=== PATIENT | male | born 1950 | race Caucasian/White ===

== ENCOUNTER 2017-04-14 05:22 | Inpatient (IN) | payer OTHER, MEDICARE ==
[2017-03-15 13:35] VITALS: BMI 31.0
--- NOTE | 2017-03-15 14:12 | PAT Medication Instructions ---
Service Date March 15, 2017. Current Home Medication List Aspirin (Aspirin Ec), 81 MG PO QAM Carboxymethylcellulose-Glyceri (Optive), 1 DROPS OP QAM PRN for DRY EYES Cholecalciferol (Vitamin D3), 1 TAB PO QAM Ferrous Sulfate (Kp Ferrous Sulfate), 1 TAB PO QAM Fish Oil ([place]-3), 1 CAP PO QAM Fish Oil ([place]-3), 1 CAP PO QAM Ketorolac Tromethamine (Ophth) (Acular Oph), 1 DROPS OPR QID Latanoprost (Xalatan 0.005% Oph Estrella), 1 DROPS OPB HS Loratadine (Claritin), 10 MG PO QAM PRN for SEASONAL ALLERGIES Multivitamin (Multivitamin), 1 TAB PO QAM Naproxen (Aleve), 2 TAB PO QAM Ofloxacin (Oph) (Ocuflox Oph Soln), 1 DROPS OPR QID Prednisolone Acetate (Ophth) (Pred Forte 1% Oph), 1 DROPS OPR QID Red Yeast Rice Extract (Red Yeast Rice), 1,200 MG PO QAM Sertraline (Zoloft), 25 MG PO TWICE MONTHLY PRN for Anxiety Medication Instructions For Your Scheduled Surgery Ketorolac Tromethamine (Ophth) (Acular Oph), 1 DROPS OPR QID (take as directed) Latanoprost (Xalatan 0.005% Oph Estrella), 1 DROPS OPB HS (take as directed) Ofloxacin (Oph) (Ocuflox Oph Soln), 1 DROPS OPR QID (take as directed) Prednisolone Acetate (Ophth) (Pred Forte 1% Oph), 1 DROPS OPR QID (take as directed) Naproxen (Aleve), 2 TAB PO QAM (patient will check with surgeon for instructions ) - Hold the following medications 2 weeks prior to surgery: Red Yeast Rice Extract (Red Yeast Rice), 1,200 MG PO QAM. Fish Oil ([place]-3), 1 CAP PO QAM - Hold the following medications the morning of surgery: Loratadine (Claritin), 10 MG PO QAM PRN for SEASONAL ALLERGIES Multivitamin (Multivitamin), 1 TAB PO QAM Cholecalciferol (Vitamin D3), 1 TAB PO QAM Ferrous Sulfate (Kp Ferrous Sulfate), 1 TAB PO QAM - Take the following medications the morning of surgery with a sip of water: Sertraline (Zoloft), 25 MG PO TWICE MONTHLY PRN for Anxiety (if needed) Aspirin (Aspirin Ec), 81 MG PO QAM Carboxymethylcellulose-Glyceri (Optive), 1 DROPS OP QAM PRN for DRY EYES (if needed) If you have any questions please call us at [phone] or [phone] ( Jacey) or [phone]
[2017-03-15 14:43] LABS: BASO % 0.7 %; BASO ABS # 0.05 K/uL (0-0.2); COMPLETE YES; EOS % 2.9 %; HEMATOCRIT 46.4 % (42-52); IG% 0.1 %; LYMPH % 33.1 %; LYMPH ABS # 2.26 K/uL (1.2-3.4); MEAN CELL VOLUME 89.9 fL (80-100); MEAN CORPUSCULAR HEMOGLOBIN 29.5 pg (25-34); MEAN CORPUSCULAR HGB CONC 32.8 g/dl (32-36); MEAN PLATELET VOLUME 9.5 fL (7.4-10.4); MONO % 7.3 %; NEUT % 55.9 %; PLATELET COUNT 202 K/uL (130-400); RED BLOOD COUNT 5.16 M/uL (4.7-6.1); WHITE BLOOD COUNT 6.83 K/uL (4.8-10.8)
[2017-03-15 14:51] LABS: ESTIMATED AVERAGE GLUCOSE 114 mg/dl; HA1C FLAG Normal (Normal)
[2017-03-15 14:54] LABS: PROTHROMBIN TIME (PATIENT) 10.3 SECONDS (9.0-12.0)
[2017-03-15 14:57] LABS: URINE APPEARANCE CLEAR (CLEAR); URINE BILIRUBIN NEG (NEG); URINE COLOR YELLOW; URINE NITRITE NEG (NEG); URINE PH 5.5 (4.5-7.5); URINE SPECIFIC GRAVITY 1.022 (1.000-1.030); UROBILINOGEN NEG (NEG)
--- NOTE | 2017-03-15 14:57 | DIAGNOSTIC IMAGING REPORT ---
CHEST 2 VIEWS ROUTINE CLINICAL HISTORY: Preoperative evaluation. COMPARISON STUDY: No previous studies for comparison. FINDINGS: Low volumes are normal. There is no consolidation to suggest pneumonia and there is no evidence of pulmonary edema. Cardiac size is at the upper limits of normal. There is no pneumothorax or pleural effusion. IMPRESSION: 1. No acute cardiopulmonary findings. 2. Borderline cardiomegaly. Electronically signed by: Sudhir Benson M.D. 03/15/2017 2:55 PM Dictated Date/Time: 03/15/2017 2:54 PM
[2017-03-15 15:10] LABS: MANUAL MICROSCOPIC REQUIRED? NO; REVIEW REQ? NO
[2017-03-15 16:34] LABS: BUN/CREATININE RATIO 19.9 (10-20); CALCIUM 9.1 mg/dl (8.5-10.1); CREATININE 0.94 mg/dl (0.60-1.40); POTASSIUM 4.1 mmol/L (3.5-5.1)
--- NOTE | 2017-04-13 09:51 | HISTORY & PHYSICAL EXAMINATION ---
DATE OF ADMISSION: 04/14/2017 CHIEF COMPLAINT: Left hip pain. HISTORY OF PRESENT ILLNESS: The patient is a 66-year-old gentleman with known osteoarthritis about his bilateral hips, left worse than right. He takes naproxen daily for pain. He complains of increasing pain and disability with activities of daily living. He has pain with prolonged weightbearing and standing activities. He has difficulty with any kneeling, bending, or squatting activities. He now desires to proceed with left total hip arthroplasty. PAST MEDICAL HISTORY: Hypertension, hypercholesterolemia, prostate cancer, and obesity. PAST SURGICAL HISTORY: Prostatectomy, left knee arthroscopy, bilateral cataract surgery. MEDICATIONS: Sertraline hydrochloride 25 mg half tablet in the a.m. and half tablet in the p.m. p.r.n., latanoprost eyedrops 0.005% 2 eyedrops at bedtime, loratadine 10 mg p.r.n., naproxen 440 mg daily, aspirin 81 mg daily, iron 65 mg daily, vitamin D3 5000 units daily, vitamin B12 1000 mcg daily, omega-3 fish oil 1000 mg twice daily, red yeast rice 1200 mg daily, multivitamin. ALLERGIES: No known drug allergies. SOCIAL HISTORY AND REVIEW OF SYSTEMS: Noncontributory. PHYSICAL EXAMINATION: GENERAL: Well-nourished, well-developed elderly male who appears his stated age. HEENT: Normocephalic, atraumatic, extraocular movements intact, oropharynx pink and moist. NECK: Supple without adenopathy. LUNGS: Clear to auscultation bilaterally. HEART: Regular rate and rhythm. ABDOMEN: Soft, nontender, nondistended. EXTREMITIES: Upper extremities within normal limits. The left hip demonstrates limited range of motion. There is decreased internal and external rotation with pain at end range. X-RAYS: X-rays were reviewed. He has severe osteoarthritis about the left hip with complete loss of the joint space. There is osteophyte formation about the femoral head. There is deformation of the femoral head. There is cyst formation in the femoral head. ASSESSMENT: Left hip degenerative joint disease. PLAN: Risks versus benefits were discussed. Consent was obtained. The patient's primary care physician is Dr. Josue from [place]. We will proceed with left total hip arthroplasty upon preoperative workup and medical clearance.
[~2017-04-14] VITALS: Ht 177.8 cm; Wt 100.0 kg
[2017-04-14] VITALS (9 sets, daily range): BP systolic 109–159; BP diastolic 69–89; PULSE 62–82; TEMP 36.4–36.7; O2SAT 95–100; Ht 177.8 cm; Wt 100.0 kg
[~2017-04-14 05:22] MED LIST: ASPI81TA28 PO; CARB0.01 OP; CHOL1TAB46 PO; CLR10 PO; FERR1TAB13 PO; KETO0.5S33 OPR; LATA0.009 OPB; MULT-506 PO; NAPR1TAB9 PO; OFLO0.3S OPR; OMEG10007 PO; PRED1SUS3 OPR; RED1CAP5 PO; SERT25TA PO
[2017-04-14] MEDS ORDERED: CEFAZOLIN 3000 MG/65 ML D5W IV SCH (06:00)
[2017-04-14] MEDS ORDERED: GABAPENTIN 300 MG CAP PO SCH (06:00)
[2017-04-14] MEDS ORDERED: LACTATED RINGER'S 1000ML IV SCH (06:00)
[2017-04-14] MEDS ORDERED: FAMOTIDINE 20 MG TAB PO SCH (06:00)
[2017-04-14] MEDS ORDERED: ACETAMINOPHEN 500 MG TAB PO SCH (06:00)
[2017-04-14] MEDS ORDERED: CeleBREX 200 MG CAP PO SCH (06:00)
[2017-04-14] MEDS ORDERED: DEXAMETHASONE 4 MG TAB PO SCH (06:00)
[2017-04-14] MEDS ORDERED: LACTATED RINGER'S 1000ML 500 ML IV ONE (06:00)
[2017-04-14] MEDS ORDERED: METOCLOPRAMIDE HCL 10 MG TAB PO SCH (06:00)
[2017-04-14] MEDS ORDERED: ROPIVACAINE 5MG/ML 30 ML 150 MG, BUPIVACAINE/EPINEPHR 0.5% MPF 30 ML, KETOROLAC TROMETH... INFIL SCH ×7 (06:00)
[2017-04-14] MEDS ORDERED: LACTATED RINGER'S 1000ML 1,000 ML IV SCH (06:00)
[2017-04-14] MEDS: TRANEXAMIC ACID INJ 1,000 MG in SODIUM CHLORIDE 0.9% 100ML 100 ML IV SCH ×2 (06:17→06:30)
[2017-04-14] MEDS ORDERED: BUPIVACAINE 0.5 % 5 MG/1 ML PF 10ML VIAL ONE (06:29)
[2017-04-14] MEDS ORDERED: ORTHO JOINT ANESTHETIC ONE (06:39)
[2017-04-14] MEDS ORDERED: POVIDONE-IODINE OP SOLN 30 ML BTL ONE ×2 (06:39→06:55)
[2017-04-14] MEDS ORDERED: BACITRACIN 50000 UNIT VIAL ONE (06:40)
[2017-04-14] MEDS ORDERED: FENTANYL CITRATE INJ 50 MCG/1 ML 2 ML VIAL ONE (06:44)
[2017-04-14] MEDS ORDERED: MIDAZOLAM HCL 1 MG/ML 2ML VIAL ONE (06:44)
--- NOTE | 2017-04-14 06:59 | History & Physical Bridge Note ---
H&P Re-Evaluation Bridge Note: I have examined the patient, reviewed the History & Physical and in the interval since the performance of the History & Physical I have noted the following changes of clinical significance: No changes noted
[2017-04-14] MEDS ORDERED: LIDOCAINE HCL 2% 2 ML VIAL (20MG/ML) ONE (07:41)
[2017-04-14] MEDS ORDERED: PROPOFOL IV EMULSION 10 MG/ML 20 ML VIAL IV ONE (07:41)
--- NOTE | 2017-04-14 07:53 | [facility] Post Operative Brief Note ---
Immediate Operative Summary Operative Date Apr 14, 2017. Pre-Operative Diagnosis Degenerative joint disease left hip Post-Operative Diagnosis Same Procedure(s) Performed Left Total Hip Arthroplasty Surgeon Dr Partida Assistant Account Executive Surgeon(s) Monroe Martin PA-C Estimated Blood Loss 100ML Findings severe OA Specimens A. Left femoral head Disposition Recovery Room / PACU
--- NOTE | 2017-04-14 08:00 | OPERATIVE REPORT ---
DATE OF OPERATION: 04/14/2017 PREOPERATIVE DIAGNOSIS: Osteoarthritis left hip. POSTOPERATIVE DIAGNOSIS: Osteoarthritis left hip. PROCEDURE: Left connective total hip arthroplasty. SURGEON: Dr. Partida. GOLD LETTERER: Monroe Martin PA-C. ANESTHESIA: Spinal. COMPLICATIONS: None. OPERATION AND FINDINGS: PROCEDURE: Following induction of adequate spinal anesthesia, the patient was placed in right lateral decubitus position and left Adamaris-Langenbeck incision was made. Subcutaneous tissue was sharply dissected. Electrocautery used for hemostasis. The fascia was incised throughout the length of the wound and a obrien scissor placed beneath the short external rotators. The pyriformis was tagged with #1 Vicryl. The short external rotators were divided from the posterior aspect of the femur using electrocautery. These were swept posteriorly. A T-capsulotomy incision was made and the hip was dislocated using a combination of flexion, adduction, and internal rotation. Exposure of the femoral neck with old-style Hohmann and a blunt Hohmann was carried out and a femoral rasp was utilized as a guide for making the appropriate level femoral neck cut. This bone fragment was removed and reserved on the back table. Next, attention was turned to the acetabulum where bone hook was used to retract the femur while the offset retractors were placed anterior and posteriorly. A double-angled Hohmann was placed in superior and anterior position exposing the acetabulum nicely. Acetabular labrum as well as posterior capsule elements were removed using a long knife and a long pickup. Fovea centralis was cleared of all soft tissue. Sequential reamings were carried up to a size 54 and decision was made to proceed with impaction of a 54 trabecular metal cup. This was impacted and held using a single 35 mm bone screw. The acetabular liner was placed with 15 of elevated posterior wall in the superior and posterior position. Next, attention was turned to the femoral portion of the case where a Bovie and pickup was used to further clear short external rotators from their insertion on the femur. Box osteotome was used to gain access to the femoral canal and the T-handled rasp and a rattail rasp were used to further open and lateral the canal. Sequentially raspings were carried up to a size 4 which gave good fit and fill of the proximal femur. A trial reduction was carried out and size 4 offset femoral neck component was chosen as the size to be used. A -2.5 x 36 mm ceramic femoral head was impacted into position, +0 head was utilized. The trial reduction was stable in all degrees of rotation with no [id number] impingement. The hip was dislocated. The trial components were removed and the final femoral stem, neck, and femoral head combination were assembled on the back table and impacted into position. Hip was relocated. Range of motion checked once again successful and the wound was irrigated. The pyriformis repaired to the greater trochanter using #1 Vicryl [id number] suture. A Hemovac drain was placed and the fascia was closed using #1 Vicryl, subcutaneous tissue was closed using 0 Dexon, and skin was closed with sharron. Sterile dressing of Adaptic, 4 x 4's, ABDs, and foam tape was applied. The patient tolerated the procedure well. Due to the complex nature of the procedure, the entire surgery was performed with the operational assistance of Monroe Martin PA-C. The assistant professor sculpture, under direct supervision, was involved in the actual performance of all aspects of the surgical procedure including hemostasis, tissue retraction and incision, instrument management, patient positioning, and wound closure. I attest to the content of the Intraoperative Record and any orders documented therein. Any exception s are noted below.
[2017-04-14] MEDS ORDERED: KETOROLAC TROMETHAMINE 30 MG/ML VIAL IV. PRN (08:15)
[2017-04-14] MEDS ORDERED: EpHEDrine SULFATE INJ 50 MG/ML AMP IV PRN (08:15)
[2017-04-14] MEDS ORDERED: ATROPINE SULFATE 0.1 MG/ML 5ML SYR IV PRN (08:15)
[2017-04-14] MEDS ORDERED: HYDROmorphone INJ 2 MG/ML SYR/VIAL IV PRN (08:15)
[2017-04-14] MEDS ORDERED: PHENYLEPHRINE 100MCG/ML 5ML SYR IV PRN (08:15)
[2017-04-14] MEDS ORDERED: ONDANSETRON INJ 2 MG/ML 2 ML VIAL IV PRN ×2 (08:15→08:30)
[2017-04-14] MEDS ORDERED: TAMSULOSIN HCL 0.4 MG CAP PO PRN (08:30)
[2017-04-14] MEDS ORDERED: OXYCODONE HCL IR 5 MG TAB (IMMEDIATE RELEASE) PO PRN (08:30)
[2017-04-14] MEDS ORDERED: SERTRALINE HCL 50 MG TAB PO PRN (08:30)
[2017-04-14] MEDS ORDERED: ALUMINUM/MAGNESIUM/SIMETH (MAALOX MAX) 30 ML UDC PO PRN (08:30)
[2017-04-14] MEDS ORDERED: MoRPHine SULFATE 2 MG/ML CARP IV PRN (08:30)
[2017-04-14] MEDS ORDERED: MAGNESIUM HYDROXIDE SUSP 30 ML UDC PO PRN (08:30)
[2017-04-14] MEDS ORDERED: ZOLPIDEM TARTRATE 5 MG TAB PO PRN (08:30)
[2017-04-14] MEDS ORDERED: METOCLOPRAMIDE HCL INJ 5 MG/ML 2 ML VIAL IV PRN (08:30)
[2017-04-14] MEDS: KETOROLAC 0.5% OP SOLN 3 ML BTL OPR SCH ×4 (09:00→21:00)
[2017-04-14] MEDS: MULTIVITAMIN TAB PO SCH (09:00)
[2017-04-14] MEDS: PANTOprazole SOD 40 MG TAB PO SCH (09:00)
[2017-04-14] MEDS: PrednisoLONE ACET 1% OP SUSP 5 ML BTL OPR SCH ×4 (09:00→21:00)
[2017-04-14] MEDS: DOCUSATE SODIUM 100 MG CAP PO SCH ×2 (09:00→21:02)
--- NOTE | 2017-04-14 09:19 | DIAGNOSTIC IMAGING REPORT ---
SINGLE VIEW PELVIS; SINGLE VIEW LEFT HIP CLINICAL HISTORY: Postoperative examination. FINDINGS: An AP portable view of the hips and pelvis with a crosstable lateral portable view of the left hip are obtained. A bipolar left hip arthroplasty is in near-anatomic alignment. A single cortical lag screw transfixes the acetabular cup. No acute fracture is identified. There are expected postoperative changes overlying the left hip including skin clips, subcutaneous gas, a surgical drain, and soft tissue swelling. Moderate arthritic change is seen in the right hip. Numerous surgical clips are seen in the pelvis. IMPRESSION: Expected postoperative findings status post left hip arthroplasty. No acute fracture is seen. Electronically signed by: Luke Guerra M.D. 04/14/2017 9:18 AM Dictated Date/Time: 04/14/2017 9:17 AM
--- NOTE | 2017-04-14 09:44 | Anesthesiology Progress Note ---
Anesthesia Post Op Note Date & Time Apr 14, 2017 at 09:44 Vital Signs Pain Intensity: 0 Vital Signs Past 12 Hours Date Time Temp Pulse Resp B/P (MAP) Pulse Ox O2 Delivery O2 Flow Rate FiO2 04/14/17 09:37 97/64 04/14/17 09:34 62 15 04/14/17 09:34 61 15 99 04/14/17 09:32 105/60 04/14/17 09:29 57 17 04/14/17 09:29 57 17 99 04/14/17 09:27 98/68 04/14/17 09:24 60 16 99 04/14/17 09:24 60 16 04/14/17 09:22 97/61 04/14/17 09:19 62 14 100 04/14/17 09:19 61 14 04/14/17 09:17 111/65 04/14/17 09:17 36.7 60 16 111/65 (77) 100 Nasal Cannula 2 04/14/17 09:14 60 12 99 04/14/17 09:14 60 12 04/14/17 09:13 61 18 04/14/17 09:13 62 18 99 04/14/17 09:12 101/67 04/14/17 09:08 59 14 100 04/14/17 09:08 59 14 04/14/17 09:07 112/59 04/14/17 09:03 58 14 04/14/17 09:03 58 14 100 04/14/17 09:02 106/66 04/14/17 08:58 57 15 100 04/14/17 08:58 56 15 04/14/17 08:57 107/66 04/14/17 08:53 56 12 100 04/14/17 08:53 56 12 04/14/17 08:52 99/63 04/14/17 08:48 59 12 04/14/17 08:48 58 12 100 04/14/17 08:47 96/64 04/14/17 08:43 64 15 04/14/17 08:43 64 15 100 04/14/17 08:42 59 12 04/14/17 08:42 61 12 100/64 100 04/14/17 08:42 59 12 04/14/17 08:42 61 12 100/64 100 04/14/17 08:37 62 16 04/14/17 08:37 61 16 102/60 100 04/14/17 08:37 62 16 04/14/17 08:37 61 16 102/60 100 04/14/17 08:32 61 14 04/14/17 08:32 61 14 04/14/17 08:32 62 14 106/65 100 04/14/17 08:32 62 14 106/65 100 04/14/17 08:27 61 12 04/14/17 08:27 60 12 100/69 100 04/14/17 08:27 60 12 100/69 100 04/14/17 08:27 61 12 04/14/17 08:24 99/63 04/14/17 08:24 99/63 04/14/17 08:22 67 18 04/14/17 08:22 67 18 04/14/17 08:22 66 18 100 04/14/17 08:22 36.4 64 20 99/63 (69) 100 Mask 10 04/14/17 08:22 66 18 100 04/14/17 05:54 36.7 78 20 159/89 98 Room Air Notes Mental Status: alert / awake / arousable, participated in evaluation Pt Amnestic to Procedure: Yes Nausea / Vomiting: adequately controlled Pain: adequately controlled Airway Patency, RR, SpO2: stable & adequate BP & HR: stable & adequate Hydration State: stable & adequate Anesthetic Complications: no major complications apparent
[2017-04-14] MEDS ORDERED: MoRPHine SULFATE 10 MG/ML CARP/VIAL IV PRN (09:45)
[2017-04-14] MEDS ORDERED: MoRPHine SULFATE 4 MG/ML 1 ML CARP\\VIAL IV PRN (09:45)
[2017-04-14] MEDS: D5W AND 1/2NSS + 20MEQ KCL 1,000 ML IV SCH ×2 (10:29→20:59)
[2017-04-14] MEDS: ASPIRIN 81 MG ECTAB PO SCH ×2 (10:29→21:01)
[2017-04-14] MEDS: KETOROLAC TROMETHAMINE 15 MG/ML VIAL IV. SCH ×3 (11:15→23:33)
[2017-04-14] MEDS: FERROUS GLUCONATE 324 MG TAB PO SCH ×2 (12:47→17:37)
[2017-04-14] MEDS: CEFAZOLIN IV 2,000 MG in DEXTROSE 5% 50ML 50 ML IV SCH ×2 (13:23→21:59)
[2017-04-14] MEDS: ACETAMINOPHEN 500 MG TAB PO SCH ×2 (13:23→21:59)
[2017-04-14] MEDS: LATANOPROST 0.005% OP SOLN 2.5 ML BTL OPB SCH (21:00)
[2017-04-14] MEDS: PREGABALIN 75 MG CAP PO SCH (21:01)
[2017-04-15 03:45] VITALS: BP 119/73; PULSE 69; TEMP 36.4; O2SAT 97
[2017-04-15 05:38] LABS: BASO % 0.1 %; BASO ABS # 0.01 K/uL (0-0.2); COMPLETE YES; HEMATOCRIT 38.5 % (42-52); IG% 0.2 %; LYMPH % 11.1 %; LYMPH ABS # 1.29 K/uL (1.2-3.4); MEAN CELL VOLUME 87.7 fL (80-100); MEAN CORPUSCULAR HEMOGLOBIN 28.2 pg (25-34); MEAN CORPUSCULAR HGB CONC 32.2 g/dl (32-36); MEAN PLATELET VOLUME 9.7 fL (7.4-10.4); NEUT % 77.6 %; PLATELET COUNT 179 K/uL (130-400); RED BLOOD COUNT 4.39 M/uL (4.7-6.1); WHITE BLOOD COUNT 11.59 K/uL (4.8-10.8)
[2017-04-15] MEDS: KETOROLAC TROMETHAMINE 15 MG/ML VIAL IV. SCH (06:07)
[2017-04-15] MEDS: ACETAMINOPHEN 500 MG TAB PO SCH ×3 (06:07→21:53)
[2017-04-15] MEDS: D5W AND 1/2NSS + 20MEQ KCL 1,000 ML IV SCH (06:08)
[2017-04-15 06:18] LABS: BUN/CREATININE RATIO 19.4 (10-20); CALCIUM 8.1 mg/dl (8.5-10.1); POTASSIUM 4.6 mmol/L (3.5-5.1)
[2017-04-15 07:05] VITALS: BP 134/80; PULSE 71; TEMP 36.4; O2SAT 97
--- NOTE | 2017-04-15 07:26 | Orthopedic Progress Note ---
Orthopedic Progress Note Date of Service Apr 15, 2017. Subjective Post OP Day: 1 Reports: feeling well Objective N/V intact, dressing C/D/I (Hemovac d/c'd), toes mobile Date Time Temp Pulse Resp B/P (MAP) Pulse Ox O2 Delivery O2 Flow Rate FiO2 04/15/17 03:45 36.4 69 16 119/73 (88) 97 Room Air 04/14/17 23:50 36.7 72 16 124/76 (92) 95 Room Air 04/14/17 23:30 Room Air 04/14/17 18:56 36.6 82 20 137/79 (98) 97 Room Air 04/14/17 16:06 36.4 70 16 131/77 (95) 97 Room Air 04/14/17 15:30 Room Air 04/14/17 13:02 73 16 123/74 (90) 100 Nasal Cannula 2.0 04/14/17 11:53 63 16 117/74 (88) 100 Nasal Cannula 2.0 04/14/17 10:49 65 16 112/71 (85) 100 Nasal Cannula 2.0 04/14/17 10:20 62 16 112/71 (85) 100 Nasal Cannula 2.0 04/14/17 09:50 Nasal Cannula 2.0 04/14/17 09:50 99 Nasal Cannula 2.0 04/14/17 09:50 36.4 64 16 109/69 (82) 99 Nasal Cannula 2.0 04/14/17 09:37 97/64 04/14/17 09:34 62 15 04/14/17 09:34 61 15 99 04/14/17 09:32 105/60 04/14/17 09:29 57 17 04/14/17 09:29 57 17 99 04/14/17 09:27 98/68 04/14/17 09:24 60 16 99 04/14/17 09:24 60 16 04/14/17 09:22 97/61 04/14/17 09:19 62 14 100 04/14/17 09:19 61 14 04/14/17 09:17 111/65 04/14/17 09:17 36.7 60 16 111/65 (77) 100 Nasal Cannula 2 04/14/17 09:14 60 12 99 04/14/17 09:14 60 12 04/14/17 09:13 61 18 04/14/17 09:13 62 18 99 04/14/17 09:12 101/67 04/14/17 09:08 59 14 100 04/14/17 09:08 59 14 04/14/17 09:07 112/59 04/14/17 09:03 58 14 04/14/17 09:03 58 14 100 04/14/17 09:02 106/66 04/14/17 08:58 57 15 100 04/14/17 08:58 56 15 04/14/17 08:57 107/66 04/14/17 08:53 56 12 100 04/14/17 08:53 56 12 04/14/17 08:52 99/63 04/14/17 08:48 59 12 04/14/17 08:48 58 12 100 04/14/17 08:47 96/64 04/14/17 08:43 64 15 04/14/17 08:43 64 15 100 04/14/17 08:42 59 12 04/14/17 08:42 61 12 100/64 100 04/14/17 08:42 59 12 04/14/17 08:42 61 12 100/64 100 04/14/17 08:37 62 16 04/14/17 08:37 61 16 102/60 100 04/14/17 08:37 62 16 04/14/17 08:37 61 16 102/60 100 04/14/17 08:32 61 14 04/14/17 08:32 61 14 04/14/17 08:32 62 14 106/65 100 04/14/17 08:32 62 14 106/65 100 04/14/17 08:27 61 12 04/14/17 08:27 60 12 100/69 100 04/14/17 08:27 60 12 100/69 100 04/14/17 08:27 61 12 04/14/17 08:24 99/63 04/14/17 08:24 99/63 04/14/17 08:22 67 18 04/14/17 08:22 67 18 04/14/17 08:22 66 18 100 04/14/17 08:22 36.4 64 20 99/63 (69) 100 Mask 10 04/14/17 08:22 66 18 100 Laboratory Results 24 Hours: Test 04/15/17 05:20 White Blood Count 11.59 K/uL Red Blood Count 4.39 M/uL Hemoglobin 12.4 g/dL Hematocrit 38.5 % Mean Corpuscular Volume 87.7 fL Mean Corpuscular Hemoglobin 28.2 pg Mean Corpuscular Hemoglobin Concent 32.2 g/dl Platelet Count 179 K/uL Mean Platelet Volume 9.7 fL Neutrophils (%) (Auto) 77.6 % Lymphocytes (%) (Auto) 11.1 % Monocytes (%) (Auto) 11.0 % Eosinophils (%) (Auto) 0.0 % Basophils (%) (Auto) 0.1 % Neutrophils # (Auto) 8.99 K/uL Lymphocytes # (Auto) 1.29 K/uL Monocytes # (Auto) 1.28 K/uL Eosinophils # (Auto) 0.00 K/uL Basophils # (Auto) 0.01 K/uL Assessment & Plan Assessment: 66 yo male stable POD #1 s/p left KARISSA Plan: 1. Med management 2. DVT prophylaxis- ASA, SCDs 3. PT/OT 4. D/C planning- home w/ HH
--- NOTE | 2017-04-15 07:28 | Discharge Instructions ---
Discharge Instructions Date of Service Apr 15, 2017. Admission Reason for Admission: Left Hip Osteoarthritis Discharge Discharge Diagnosis / Problem: Left hip arthritis Discharge Goals Goal(s): Decrease discomfort, Improve function Activity Recommendations Activity Limitations: as noted below Weightbearing Status: Left weightbearing (as tolerated) . Instructions / Follow-Up Instructions / Follow-Up ACTIVITY RECOMMENDATIONS: SELF CARE INSTRUCTIONS AFTER TOTAL HIP REPLACEMENT Until the incision and soft tissues around your hip have healed, there is a possibility that the hip prosthesis could dislocate. A. Observe the following precautions to prevent dislocation: 1. Don't bend your hip greater than 90 degrees. 2. Avoid crossing your legs or ankles while standing or lying. 3. Sit with your feet placed 6 inches apart. 4. When sitting, keep your knees below your hips. Sit on a firm surface, avoid deep, soft chairs and couches. Use an elevated toilet seat in the bathroom. 5. Don't bend over at the waist. Use a long handled shoehorn and a sock aid to help you put on your shoes and socks. A pole maker can help you picking crew supervisor objects that are too high or too low to reach. 6. Keep car riding to a minimum for at least one month after surgery. B. Your balance may be shaky for a while. Use crutches or a walker until directed by your doctor. C. Use hand rails when walking on stairs. D. Wear low heeled shoes with non-slip soles. E. Be sure that your floors are free of things that could trip you - throw rugs , electrical cords, small objects. Avoid wet and waxed floors, especially with crutches and canes. F. Try to walk several times a day with rest periods between. G. Continue with all the exercises taught to you in the hospital. Again, make walking a part of your daily routine. SPECIAL CARE INSTRUCTIONS: VERY IMPORTANT TO READ AND REVIEW A. You may still be at risk for phlebitis and blood clots. 1. Wear surgical stockings (CIERRA hose) for 2 weeks after surgery to improve circulation and reduce swelling. 2. Take Aspirin 81mg twice daily for 4 weeks or as directed by your doctor. This is your blood thinner. 3. High risk patients may be prescribed a stronger blood thinner if necessary. 4. If you are on Coumadin normally, your family doctor/assistant dean of students should monitor your blood work. Expect a phone call the day of or the day after bloodwork is drawn to adjust your dosage. B. You must take antibiotics before having dental work, bladder, bowel and other surgery. Your doctor will provide you with a permanent card to carry describing precautions. C. Call [facility] if you have a fever, redness or swelling around the incision, cloudy drainage from incision, or sudden increase in pain in your hip, not relieved by your regular pain medication. D. Please call the office at if you have any concerns or questions about your operation or recovery. * YOU MAY SHOWER, NO TUB BATHS UNTIL CLEARED BY YOUR DOCTOR. * WEAR CIERRA HOSE 20 HOURS PER DAY FOR 2 WEEKS. * YOU SHOULD USE A WALKER OR CRUTCHES FOR 2-4 WEEKS. THIS WILL HELP PREVENT STRAIN ON YOUR HIP MUSCLE AND ALLOW IT TO HEAL PROPERLY. YOU MAY WEAN TO A CANE TOLERATED. * MOST PATIENTS WILL HAVE HOME NURSING FOR THERAPY. IF YOU DECIDE TO DO OUTPATIENT PHYSICAL THERAPY, PLEASE SCHEDULE THIS 3 TIMES PER WEEK. Silverlon- This is a large adhesive bandage that contains silver ions. This helps your incision heal by fighting off bacteria and protecting it from the outside environment. You are permitted to shower with this dressing. This will remain on your incision for 7 days and then should be removed. Some visible blood or drainage through the dressing window is normal. If there is significant drainage or leaking noted before the 7 days notify your doctor's office immediately. Once removed, keep incision clean and dry. If there is any drainage or redness noted, please call your surgeon. FOLLOW UP VISIT: If appointment is not already scheduled: Please call [facility] to make a follow-up appointment for 2 weeks after your surgery at . Current Hospital Diet Patient's current hospital diet: Regular Diet Discharge Diet Recommended Diet: Regular Diet Procedures Procedures Performed: Left Total Hip Arthroplasty Pending Studies Studies pending at discharge: no Laboratory Results Hemoglobin A1c Test 03/15/17 14:21 Range/Units Estimated Average Glucose 114 mg/dl Hemoglobin A1c 5.6 4.5-5.6 % Medical Emergencies . Who to Call and When: Medical Emergencies: If at any time you feel your situation is an emergency, please call 911 immediately. . Non-Emergent Contact Non-Emergency issues call your: Surgeon Call Non-Emergent contact if: temperature is above 101.5, your pain is not controlled, wound has increased drainage, wound has increased redness . "Provider Documentation" section prepared by Monroe Martin PA-C. . VTE Core Measure Inpt VTE Proph given/why not?: Other Anticoagulation (ASA 81mg bid), T.E.D. Stockings, SCD's [place] Drug Monitoring Program Search Results: patient reviewed within database, no issues identified
[2017-04-15] MEDS ORDERED: DEXAMETHASONE 4 MG TAB PO SCH (07:30)
[2017-04-15] MEDS: DOCUSATE SODIUM 100 MG CAP PO SCH ×2 (08:31→20:45)
[2017-04-15] MEDS: FERROUS GLUCONATE 324 MG TAB PO SCH ×3 (08:31→18:15)
[2017-04-15] MEDS: KETOROLAC 0.5% OP SOLN 3 ML BTL OPR SCH ×4 (08:31→20:43)
[2017-04-15] MEDS: PrednisoLONE ACET 1% OP SUSP 5 ML BTL OPR SCH ×4 (08:31→20:43)
[2017-04-15] MEDS: MULTIVITAMIN TAB PO SCH (08:32)
[2017-04-15] MEDS: PANTOprazole SOD 40 MG TAB PO SCH (08:32)
[2017-04-15] MEDS: ASPIRIN 81 MG ECTAB PO SCH ×2 (08:32→20:45)
[2017-04-15] MEDS: CHOLECALCIFEROL 1000 INTER.UNIT TAB PO SCH (08:32)
[2017-04-15] MEDS: PREGABALIN 75 MG CAP PO SCH ×2 (08:37→20:45)
[2017-04-15 15:30] VITALS: O2SAT 97
[2017-04-15 15:50] VITALS: BP 145/75; PULSE 86; TEMP 36.7; O2SAT 96
[2017-04-15] MEDS: LATANOPROST 0.005% OP SOLN 2.5 ML BTL OPB SCH (20:43)
[2017-04-15] MEDS: CeleBREX 200 MG CAP PO SCH (20:44)
[2017-04-15 23:10] VITALS: BP 121/74; PULSE 67; TEMP 36.8; O2SAT 97
[2017-04-16 06:19] VITALS: BP 104/67; PULSE 66; TEMP 36.7; O2SAT 98
[2017-04-16] MEDS: ACETAMINOPHEN 500 MG TAB PO SCH (06:21)
--- NOTE | 2017-04-16 08:50 | Orthopedic Progress Note ---
Orthopedic Progress Note Date of Service Apr 16, 2017. Subjective Post OP Day: 2 Reports: feeling well, pain controlled w PO medications, Denies: complaints, chest pain, SOB, nausea / vomiting, light headedness, calf pain Objective calves soft nontender, N/V intact, hip located, capillary refill less than 2 sec., dressing C/D/I, A&O x3, toes mobile silverlon in tact. Date Time Temp Pulse Resp B/P (MAP) Pulse Ox O2 Delivery O2 Flow Rate FiO2 04/16/17 06:19 36.7 66 16 104/67 (79) 98 Room Air 04/16/17 00:30 Room Air 04/15/17 23:10 36.8 67 18 121/74 (90) 97 Room Air 04/15/17 15:50 36.7 86 18 145/75 (98) 96 Room Air 04/15/17 15:30 97 Room Air Assessment & Plan Assessment: 66 yo male stable POD #2 s/p left KARISSA Plan: 1. Med management 2. DVT prophylaxis- ASA, SCDs 3. PT/OT 4. D/C planning- home w/ HH today
[2017-04-16] MEDS ORDERED: RXC5 PO (08:54)
[2017-04-16] MEDS ORDERED: ONDA8TAB6 PO (08:54)
[2017-04-16] MEDS ORDERED: CLB200 PO (08:54)
[2017-04-16] MEDS ORDERED: ACET-1138 PO (08:54)
[2017-04-16] MEDS ORDERED: ASPEC81 PO (08:54)
[2017-04-16] MEDS: KETOROLAC 0.5% OP SOLN 3 ML BTL OPR SCH (08:57)
[2017-04-16] MEDS: PrednisoLONE ACET 1% OP SUSP 5 ML BTL OPR SCH (08:57)
[2017-04-16] MEDS: DOCUSATE SODIUM 100 MG CAP PO SCH (08:58)
[2017-04-16] MEDS: MULTIVITAMIN TAB PO SCH (08:59)
[2017-04-16] MEDS: PANTOprazole SOD 40 MG TAB PO SCH (08:59)
[2017-04-16] MEDS: CeleBREX 200 MG CAP PO SCH (09:00)
[2017-04-16] MEDS: FERROUS GLUCONATE 324 MG TAB PO SCH (09:00)
[2017-04-16] MEDS: ASPIRIN 81 MG ECTAB PO SCH (09:01)
[2017-04-16] MEDS: CHOLECALCIFEROL 1000 INTER.UNIT TAB PO SCH (09:01)
[2017-04-16] MEDS: PREGABALIN 75 MG CAP PO SCH (09:02)
[2017-04-16 09:44] VITALS: BP 104/67; PULSE 66; TEMP 36.7; O2SAT 98
--- NOTE | 2017-04-27 10:09 | DISCHARGE SUMMARY ---
CHIEF COMPLAINT: Left hip pain. Please see complete history and physical examination. HOSPITAL COURSE: The patient underwent left total hip arthroplasty without complication. He tolerated the procedure well and was discharged to recovery room in stable condition. His postop course was relatively uneventful. His postoperative pain was reasonably well controlled with a combination of spinal anesthesia, intraoperative joint injection, IV, and oral pain medications. He was started on aspirin for DVT prophylaxis. He also utilized CIERRA stockings and SCDs for additional prophylaxis. His H&H was stable and did not require transfusion. His surgical drain was discontinued by postoperative day 1, surgical dressing will remain in place for approximately 7 days postoperative. He tolerated postoperative physical therapy reasonably well as he was ambulating and transferring appropriately. He was observing all total hip precautions. He was discharged home on postoperative day 2. He will continue his physical therapy at home. He will continue his aspirin for DVT prophylaxis and follow up in our office in approximately 10-14 days for his initial postop evaluation.
== END 2017-04-16 12:04 | disposition home health service (06) | DRG 470 ==
LOC: C.ACU 05:22 → C.3E 07:00 → ENRESERV 09:26
PROC: 0SRB03Z Replacement of Left Hip Joint with Ceramic Synthetic Substitute, Open Approach (ICD-10-PCS; principal; 2017-04-14 07:00)
DX: M16.12 Unilateral primary osteoarthritis, left hip (principal); I10 Essential (primary) hypertension; H26.9 Unspecified cataract; E78.00 Pure hypercholesterolemia, unspecified; F41.9 Anxiety disorder, unspecified; E66.9 Obesity, unspecified; Z68.31 Body mass index [BMI] 31.0-31.9, adult; Z87.891 Personal history of nicotine dependence; Z79.82 Long term (current) use of aspirin; Z79.899 Other long term (current) drug therapy